=== PATIENT | female | born 1985 | race Caucasian/White ===

== ENCOUNTER 2018-03-24 18:11 | Emergency (ER) | payer MEDICAID ==
[~2018-03-24] VITALS: Ht 162.6 cm; Wt 78.5 kg
[2018-03-24] MEDS ORDERED: QUET25TA PO (18:32)
--- NOTE | 2018-03-24 19:13 | NUR ---
Patient eloped from facility. ER physician notified.
== END 2018-03-24 19:14 | disposition left against medical advice (07) ==
LOC: ER 18:13
DX: Z53.21 Procedure and treatment not carried out due to patient leaving prior to being seen by health care provider (principal)
CPT/HCPCS: A4663